=== PATIENT | female | born 1975 | race Two or more races ===

== ENCOUNTER 2016-08-26 09:54 | Emergency (ER) | payer OTHER ==
[~2016-08-26] VITALS: Ht 154.9 cm; Wt 58.5 kg
[~2016-08-26 09:54] MED LIST: LAMO150T2 PO; LORA1TAB PO; MELO-270 PO; OMEP20CA10 PO; TRAM50TA92 PO
[2016-08-26 10:01] VITALS: BP 123/80
== END 2016-08-26 11:21 | disposition home or self-care (01) ==
LOC: ER 09:57
DX: R00.2 Palpitations (principal); F31.9 Bipolar disorder, unspecified; F41.0 Panic disorder [episodic paroxysmal anxiety]; Z90.89 Acquired absence of other organs
CPT/HCPCS: 93005; 99283; A4606; Z7610

== ENCOUNTER 2018-08-23 22:58 | Emergency (ER) | payer OTHER ==
[~2018-08-23] VITALS: Ht 157.5 cm; Wt 59.9 kg
[~2018-08-23 22:58] MED LIST changes: +MELO-105 PO; -MELO-270 PO; -OMEP20CA10 PO; +OMEP20CA11 PO; +TRAM50TA PO; -TRAM50TA92 PO
--- NOTE | 2018-08-23 23:06 | NUR ---
BIB SELF W C/O VOMITING X 3DAYS; S/P FALL YESTERDAY, DENIES LOC, BRUISE ON LEFT CHEEK. GEN WEAKNESS X 1 WEEK. "i FEEL LIKE I'M GONNA PASS OUT". MISSED IV IRON WEEKLY APPOINTMENT; LAST APPT 07/16/18, TO ER BED 13, HOOKED TO MONITOR, CHANGED TO GOWN, AWAITING MD WOODARD
--- NOTE | 2018-08-23 23:38 | NUR ---
DR MACDONALD AT BEDSIDE
[2018-08-24] LABS: BASOPHILS # (AUTO) 0.1 /CMM (0.0-0.2); BASOPHILS % (AUTO) 0.9 % (0.0-2.0); EOSINOPHILS % (AUTO) 1.5 % (0.0-6.0); HEMATOCRIT 32 % (33-45); HEMOGLOBIN 9.8 g/dL (11.5-14.8); LYMPHOCYTES # (AUTO) 1.7 /CMM (0.8-4.8); LYMPHOCYTES % (AUTO) 23.5 % (20.0-44.0); MEAN CORPUSCULAR HGB CONC 31 g/dl (31.0-36.0); MEAN CORPUSCULAR VOLUME 62 fL (82-100); MONOCYTES # (AUTO) 0.6 /CMM (0.1-1.30); MONOCYTES % (AUTO) 8.6 % (2.0-12.0); NEUTROPHILS # (AUTO) 4.6 /CMM (1.8-8.9); NEUTROPHILS % (AUTO) 65.5 % (43.0-81.0); PLATELET COUNT (AUTO) 399 /CMM (150-450); RED BLOOD CELL COUNT(AUTO) 5.11 MIL/uL (4.0-5.2); WHITE BLOOD COUNT (AUTO) 7.1 K/uL (4.3-11.0)
[2018-08-24 00:01] LABS: APPEARANCE,URINE CLEAR (CLEAR); BILIRUBIN,URINE NEGATIVE (NEGATIVE); BLOOD, URINE 2+ Ery/uL (NEGATIVE); COLOR,URINE YELLOW (YELLOW); KETONES,URINE NEGATIVE (NEGATIVE); LEUKOCYTE ESTERASE ,URINE NEGATIVE (NEGATIVE); NITRITE, URINE NEGATIVE (NEGATIVE); PROTEIN,URINE NEGATIVE (NEGATIVE); UGLUCOSE NEGATIVE (NEGATIVE); UROBILINOGEN,URINE 0.2 EU/dL (0.2)
[2018-08-24 00:08] LABS: RBC,URINE 51-80 /HPF (0-2)
[2018-08-24 00:09] LABS: BACTERIA,URINE Few /HPF (None Seen); MUCUS,URINE Many /LPF (None Seen); SQUAMOUS EPITHELIAL CELL,UR Few /HPF (None Seen)
[2018-08-24 00:15] LABS: CALCIUM, SERUM 9.7 mg/dL (8.5-10.1); CARBON DIOXIDE 24 mmol/L (21-32); CHLORIDE 103 mmol/L (98-107); CREATININE 0.6 mg/dL (0.6-1.3); GLUCOSE 89 mg/dL (74-106); POTASSIUM 3.8 mmol/L (3.5-5.1); SODIUM SERUM 140 mmol/L (136-145); UREA NITROGEN, BLOOD 17 mg/dL (7-18)
[2018-08-24 00:25] LABS: ALANINE AMINOTRANSFERASE 30 U/L (12-78); ALBUMIN 4.3 g/dL (3.4-5.0); ALCOHOL, BLOOD < 3 mg/dL (0-0); ALKALINE PHOSPHATASE 59 U/L (46-116); ASPARTATE AMINOTRANSFERASE 14 U/L (15-37); BILIRUBIN,DIRECT 0.1 mg/dL (0.0-0.2); BILIRUBIN,TOTAL 0.3 mg/dL (0.2-1.0); TOTAL PROTEIN, SERUM 8.1 g/dL (6.4-8.2)
[2018-08-24 00:27] LABS: ACETAMINOPHEN 0 ug/ml (10-30); SALICYLATE 1.5 mg/dL (2.8-20.0)
--- NOTE | 2018-08-24 01:13 | NUR ---
Patient discharged to home in stable condition. Written and verbal after care instructions given. Patient verbalizes understanding of instruction.
[2018-08-24 01:17] VITALS: BP 131/79
== END 2018-08-24 01:17 | disposition home or self-care (01) ==
LOC: ER 23:00
DX: S63.592A Other specified sprain of left wrist, initial encounter (principal); S00.83XA Contusion of other part of head, initial encounter; F31.9 Bipolar disorder, unspecified; R53.1 Weakness; F41.9 Anxiety disorder, unspecified; F41.0 Panic disorder [episodic paroxysmal anxiety]; Z90.89 Acquired absence of other organs; Z98.890 Other specified postprocedural states; Z79.899 Other long term (current) drug therapy; W18.39XA Other fall on same level, initial encounter; Y93.89 Activity, other specified; Y92.89 Other specified places as the place of occurrence of the external cause; Y99.8 Other external cause status
CPT/HCPCS: 36415; 70486; 73110; 80048; 80076; 80305; 80307; 80329; 81001; 85025; 99284; A4606; G0480; 81000-TC

== ENCOUNTER 2023-06-15 19:49 | Emergency (ER) | payer OTHER ==
[~2023-06-15] VITALS: Ht 154.9 cm; Wt 60.8 kg
[~2023-06-15 19:49] MED LIST changes: -OMEP20CA11 PO; +OMEP20CA15 PO
[2023-06-15 20:37] VITALS: BP 154/98; TEMP 99.2; O2SAT 99
== END 2023-06-15 20:37 | disposition home or self-care (01) ==
LOC: ER 19:51
DX: F31.9 Bipolar disorder, unspecified (principal); F41.9 Anxiety disorder, unspecified; Z98.890 Other specified postprocedural states; Z79.899 Other long term (current) drug therapy